=== PATIENT | female | born 1945 ===

== ENCOUNTER → 2018-11-25 | Outpatient (CLI) | payer OTHER, MEDICARE | LOC: BHFA 15:30 | PROVIDERS: ATTEND Internal Medicine Cardiovascular Disease | DX: I10 Essential (primary) hypertension (principal) ==

== ENCOUNTER → 2019-01-21 | Outpatient (CLI) | payer OTHER, MEDICARE | LOC: FIMAGING 13:38 | PROVIDERS: ATTEND Internal Medicine | DX: M81.0 Age-related osteoporosis without current pathological fracture (principal); Z78.0 Asymptomatic menopausal state; Z80.3 Family history of malignant neoplasm of breast; E28.39 Other primary ovarian failure ==